=== PATIENT | male | born 1985 | race Caucasian/White ===

== ENCOUNTER 2018-03-22 08:59 | Emergency (ER) | payer BC ==
[2018-03-22 09:06] VITALS: BP 104/71
[2018-03-22] MEDS ORDERED: Lidocaine 2% PF * 5 ML VIAL INJ ONE (09:43)
--- NOTE | 2018-03-22 09:43 | UC ---
Laceration HPI - HPI Summary HPI Summary: 32 yo male presents with RIGHT fink laceration sustained earlier today. He tells me that he was at the gym and hit his fink against the corner of a box. Sustained a puncture-like laceration here. He bandaged the area and came to . Last tetanus was 3-4 years ago. - History Of Current Complaint Chief Complaint: UCLaceration Stated Complaint: R LEG INJURY Time Seen by Provider: 03/22/18 09:37 Hx Obtained From: Patient Laceration Location: Leg Mechanism Of Injury: Blunt Trauma Onset/Duration: Sudden Onset Severity: Mild Pain Intensity: 4 Pain Scale Used: 0-10 Numeric - Allergies/Home Medications Allergies/Adverse Reactions: Allergies Allergy/AdvReac Type Severity Reaction Status Date / Time No Known Allergies Allergy Verified 03/22/18 09:07 Home Medications: Home Medications NK [No Home Medications Reported] 03/22/18 [History Confirmed 03/22/18] PMH/Surg Hx/FS Hx/Imm Hx - Additional Past Medical History Additional PMH: None - Surgical History Surgical History: Yes Surgery Procedure, Year, and Place: left hand,wisdom teeth - Family History Known Family History: Positive: None - Social History Occupation: Employed Full-time Alcohol Use: Occasionally Substance Use Type: None Smoking Status (MU): Never Smoked Tobacco Review of Systems All Other Systems Reviewed And Are Negative: Yes Constitutional: Positive: Negative Skin: Positive: Other - Laceration right fink Respiratory: Positive: Negative Cardiovascular: Positive: Negative Musculoskeletal: Positive: Negative Neurological: Positive: Negative Psychological: Positive: Negative Physical Exam - Summary Physical Exam Summary: GENERAL: NAD. WDWN. No pain distress. SKIN: RIGHT fink: anterior mid fink with 5mm diameter puncture wound. Mild bleeding. Wound clean. CHEST: No accessory muscle use. Breathing comfortably and in no distress. CV: Pulses intact. Cap refill <2seconds NEURO: Alert. PSYCH: Age appropriate behavior. Triage Information Reviewed: Yes Vital Signs: Initial Vital Signs Temp 98.8 F 03/22/18 09:03 Pulse 71 03/22/18 09:03 Resp 15 03/22/18 09:03 BP 104/71 03/22/18 09:03 Pulse Ox 100 03/22/18 09:03 Vital Signs Reviewed: Yes Laceration Repair - Laceration Repair 1 Description: Irregular Laceration Size After Repair: Length (cm) - 0.5 Modified For Repair: No Type Injection: Local Anesthesia Used: 2.0% Lido Irrigation With Pressure Irrigation Device: Yes Closure Material: Sutures - #3 Closure Method: Single Layer Suture Of: Skin Suture Type: Prolene - 5-0 Laceration Course/Dx - Course/Dx Course Of Treatment: The procedure was explained to the pt and all questions were answered. A time out was performed, witnessed, and signed. The area was irrigated with 250mL sterile saline. 1mL of 2% lidocaine without epi was administered and good anesthetization was achieved. In the usual sterile fashion , THREE 5-0 prolene interrupted sutures were placed. The wound was bandaged with telfa . Pt tolerated procedure well. - Diagnosis Provider Diagnosis: Laceration of right lower leg Discharge - Sign-Out/Discharge Documenting (check all that apply): Patient Departure All imaging exams completed and their final reports reviewed: No Studies - Discharge Plan Condition: Stable Disposition: HOME Patient Education Materials: Care For Your Stitches (DC), Laceration (ED) Referrals: No Primary Care Phys,NOPCP [Primary Care Provider] - Additional Instructions: If you develop a fever, shortness of breath, chest pain, new or worsening symptoms - please call your PCP or go to the ED. 1) Please keep the area bandaged, clean, dry, and intact for the next 24- 48hours. 2) If you develop a fever, colored or thick discharge, increased pain or swelling - please call your PCP or go to the ED. 3) Please return in 7-10 days to have your THREE sutures removed. - Billing Disposition and Condition Condition: STABLE Disposition: Home
== END 2018-03-22 10:30 | disposition home or self-care (01) ==
LOC: UCEAST 08:59
DX: S81.811A Laceration without foreign body, right lower leg, initial encounter (principal); W22.8XXA Striking against or struck by other objects, initial encounter; Y92.39 Other specified sports and athletic area as the place of occurrence of the external cause
CPT/HCPCS: 12001; 99211; G0463